=== PATIENT | female | born 1935 | race African-American/Black ===

== ENCOUNTER → 2018-06-04 | Day surgery (SDC) | payer OTHER, BC ==
[2018-05-29 11:45] VITALS: BMI 26.4
[~2018-06-04] MED LIST: BUPIVACAINE HCL/PF (5 MG/ML) 30 ML VIAL IJ ONE; DEXAMETHASONE SOD PHOSPHATE/PF 10 MG/ML SDV ONE; MIDAZOLAM HCL 2 MG/2 ML SINGLE DOSE VIAL ONE; ONDANSETRON 4 MG/2 ML VIAL IVPUSH PRN; PROMETHAZINE HCL 25 MG/1 ML VIAL IVPUSH PRN; PROPOFOL 20 ML ONE; oxyCODONE HCL 5 MG TABLET PO PRN
[2018-06-04 16:45] VITALS: TEMP 97.6
[2018-06-04 17:21] VITALS: BP 131/69; PULSE 78
--- NOTE | 2018-06-04 20:12 | OP ---
DATE OF OPERATION: 06/04/2018 PREOPERATIVE DIAGNOSIS: Right comminuted intraarticular displaced distal radius fracture. POSTOPERATIVE DIAGNOSIS: Right comminuted intraarticular displaced distal radius fracture. OPERATIVE PROCEDURE: 1. Open reduction, internal fixation of right comminuted intraarticular displaced distal radius fracture with internal fixation 3 or more fragments. 2. Right brachioradialis tenotomy. SURGEON: Marie Collier M.D. DATA LIBRARIAN: Loi Pinto ANESTHESIA: Regional. COMPLICATIONS: None. ESTIMATED BLOOD LOSS: Minimal. INDICATION FOR PROCEDURE: The patient is an 82-year-old female with the above findings indicated for operative treatment. Risks, benefits, and alternatives were discussed with patient at length, and informed consent was obtained. PROCEDURE: After proper identification of the patient and correct operative site, patient was brought to the operating room and placed supine on the operating room table, all bony prominences well padded. Sedation and regional anesthesia was given. Right upper extremity was prepped and draped in the usual sterile fashion. Well padded tourniquet was placed with a sterile prep. Esmarch bandage to exsanguinate the right upper extremity. Tourniquet inflated to 250 mmHg. Longitudinal incision made over the flexor carpi radialis tendon. Incision taken sharply through the skin with sharp and blunt dissection of the subcutaneous tissues. Flexor carpi radialis tendon along with contents of the carpal tunnel now bluntly and gently retracted ulnarly for the remainder of the procedure. Severely displaced fracture of the distal radius was noted, with multiple comminuted pieces, and this had ruptured part of the pronator quadratus was elevated off the distal radius. Fracture reduction was attempted; however, the brachioradialis made this impossible; therefore a subperiosteal brachioradialis tenotomy was performed. This allowed full reduction of the fracture which was then held with an Acumed, Acu-Loc distal radius plate with distal locking screws and proximal nonlocking screws. Of note, significant osteopenia was present. Once the fracture was repaired, radiographs were taken in multiple planes to confirm proper placement and sizing of all hardware as well as proper reduction of the fracture to satisfactory position. Distal radial ulnar joints and scapholunate intervals were found to be stable. The wound was irrigated with saline and repaired with 4-0 Vicryl and 4-0 Monocryl sutures. Steri-Strips and sterile dressings were applied, splint was placed. The patient was reversed from anesthesia and brought to the recovery room in stable condition. She tolerated the procedure well. Baljit Mahmood, the orthodontist assistant, was integral throughout the procedure. Procedure could not have been performed without a skilled operative orthodontist assistant. MARIE COLLIER M.D. [id number]
== END | disposition home or self-care (01) ==
LOC: FASU 12:45
PROVIDERS: ATTEND Orthopaedic Surgery Hand Surgery
PROC: 0LN50ZZ Release Right Lower Arm and Wrist Tendon, Open Approach (ICD-10-PCS; 2018-06-04)
PROC: 0PSH04Z Reposition Right Radius with Internal Fixation Device, Open Approach (ICD-10-PCS; principal; 2018-06-04 14:18)
DX: S52.571A Other intraarticular fracture of lower end of right radius, initial encounter for closed fracture (principal); X58.XXXA Exposure to other specified factors, initial encounter; Y93.9 Activity, unspecified; Y92.9 Unspecified place or not applicable
CPT/HCPCS: 73110-TC-RT-FY; 73130-TC-RT-FY